=== PATIENT | female | born 1950 | race Caucasian/White ===

== ENCOUNTER 2021-01-16 00:28 | Inpatient (IN) ==
[2021-01-16 01:19] LABS: Alanine Aminotransferase 53 U/L (13-56); Albumin 1.5 G/DL (3.4-5.0); Alkaline Phosphatase 983 U/L (45-117); Aspartate Amino Transferase 180 U/L (0-37); Blood Urea Nitrogen 21 MG/DL (7-18); Calcium 7.7 MG/DL (8.5-10.1); Carbon Dioxide 22 MMOL/L (21-32); Estimated Glom Filtration Rate 81 ML/MIN; Glucose 114 MG/DL (74-106); Osmolality,Calculated 269.4 MOS/KG (273-304); Potassium 3.6 MMOL/L (3.5-5.1); Sodium 133 MMOL/L (136-145)
[2021-01-16 01:24] LABS: INR 1.4; PT Patient Result 15.6 SECS (10.5-12.0); Partial Thromboplastin Time 29.1 SECS (23.8-32.1)
[2021-01-16] MEDS ORDERED: SODIUM CHLORIDE 0.9% 1,500 ML IV STA (01:28)
[2021-01-16] MEDS ORDERED: PIPERACILLIN/TAZOBACTAM 3,375 MG in SODIUM CHLORIDE 0.9% 100 ML IV STA (01:30)
[2021-01-16 01:34] LABS: Basophils % 0.1 % (0.0-0.8); Hematocrit 34.3 VOL% (35.7-47.0); Hemoglobin 10.1 GM/DL (12.0-16.0); Immature Granulocytes Absolute 0.11 #; Lymphocytes # 0.4 10*3/uL (1.4-4.0); Lymphocytes % 3.8 % (21.3-54.2); Mean Corpuscular HGB Conc 29.4 GM/DL (32-36); Mean Platelet Volume 11.6 FL (9.6-12.0); Monocytes % 4.3 % (1.7-12.7); Neutrophils % 90.8 % (38.7-73.9); Platelet Count 243 T/CUMM (130-400); Red Blood Count 3.73 MC/CUMM (3.8-5.5); Red Cell Distribution Width 24.2 % (9.3-17.3); White Blood Count 11.4 T/CUMM (4-12)
[2021-01-16 01:53] LABS: Bacteria,Urine Occasional /HPF (Few); Bilirubin,Urine Moderate mg/dL (Negative); Blood, Urine Negative (Negative); Glucose,Urine (UA) Negative (Negative); Granular Casts,Urine 3 /LPF (0-1); Hyaline Casts,Urine 28 /LPF (0-3); Ketones,Urine Negative (Negative); Mucus,Urine Occasional /LPF (Occasional); Nitrite,Urine Negative (Negative); Protein,Urine 30 MG/DL; RBC,Urine 1 /HPF (0-4); Squamous Epithelial Cell,Urine Occasional /HPF (0-10); Urine Appearance CLEAR (Clear); Urine Color Amber (Yellow); Urine Specific Gravity 1.028 (1.001-1.035)
[2021-01-16 01:56] LABS: Lymphocytes 2 % (20-55); Segmented Neutrophils 94 % (50-85); Total Cells Counted 100
[2021-01-16 01:57] LABS: Hypochromasia 2+; Platelet Estimate Normal
[2021-01-16] MEDS ORDERED: GLUCAGON 1 MG VIAL IM PRN (03:31)
[2021-01-16] MEDS ORDERED: ACETAMINOPHEN 325 MG TABLET PO PRN (03:31)
[2021-01-16] MEDS ORDERED: DEXTROSE 50% 25 GM/50 ML VIAL IV PRN (03:31)
[2021-01-16] MEDS ORDERED: NICOTINE 21 MG/24 HR PATCH TRANSDERM PRN (03:31)
[2021-01-16] MEDS ORDERED: hydrALAZINE 20 MG/1 ML VIAL IV PRN (03:31)
[2021-01-16] MEDS ORDERED: ONDANSETRON 4 MG/2 ML VIAL IV PRN (03:31)
[2021-01-16] MEDS ORDERED: SODIUM CHLORIDE 0.9% 1,000 ML IV SCH (04:00)
[2021-01-16 06:08] LABS: Bilirubin,Direct 3.92 MG/DL (0.0-0.20); Bilirubin,Indirect 0.9 MG/DL (0.0-1.0); Bilirubin,Total 4.8 MG/DL (0.20-1.00)
[2021-01-16] MEDS: ALBUTEROL/IPRATROPIUM 3 ML NEB RESP TX SCH ×3 (07:12→20:04)
[2021-01-16] MEDS: PANTOPRAZOLE 40 MG VIAL IV SCH ×2 (09:53→20:48)
[2021-01-16] MEDS: PIPERACILLIN/TAZOBACTAM 3,375 MG in SODIUM CHLORIDE 0.9% 100 ML IV SCH ×2 (09:55→16:59)
[2021-01-16 10:22] LABS: Hematocrit 30.3 VOL% (35.7-47.0); Hemoglobin 8.9 GM/DL (12.0-16.0)
[2021-01-16] MEDS: PARoxetine 20 MG TABLET PO SCH (10:34)
[2021-01-16] MEDS: buPROPion XL 150 MG TABLET PO SCH (10:35)
[2021-01-16] MEDS: INSULIN REGULAR 100 UNIT/ML SUBCUT SCH ×3 (12:50→20:47)
[2021-01-16 13:53] LABS: AFP Tumor < 2.2 NG/ML (0-8); Hepatitis B Core IgM Quant 0.61 Index; Hepatitis B Surface Ag Quant < 0.10 Index; Hepatitis B Surface Ag Result Non-Reactive (NonReactive); Hepatitis C Virus Ab Quant 0.14 Index; Hepatitis C Virus Ab Result Non-Reactive (NonReactive)
[2021-01-17] MEDS: ALBUTEROL/IPRATROPIUM 3 ML NEB RESP TX SCH ×4 (01:05→19:09)
[2021-01-17] MEDS: PIPERACILLIN/TAZOBACTAM 3,375 MG in SODIUM CHLORIDE 0.9% 100 ML IV SCH ×3 (01:15→16:43)
[2021-01-17 02:50] LABS: Basophils % 0.1 % (0.0-0.8); Eosinophils % 0.1 % (0.00-10.9); Hematocrit 29.7 VOL% (35.7-47.0); Hemoglobin 8.9 GM/DL (12.0-16.0); Immature Granulocytes % 0.6 %; Immature Granulocytes Absolute 0.07 #; Lymphocytes # 0.7 10*3/uL (1.4-4.0); Mean Corpuscular Volume 90.5 FL (87-102); Mean Platelet Volume 10.9 FL (9.6-12.0); Monocytes % 6.5 % (1.7-12.7); Neutrophils % 86.7 % (38.7-73.9); Platelet Count 220 T/CUMM (130-400); Red Blood Count 3.28 MC/CUMM (3.8-5.5); White Blood Count 12.3 T/CUMM (4-12)
[2021-01-17 03:29] LABS: Hypochromasia 1+; Polychromasia Slight
[2021-01-17 03:30] LABS: Microcytosis 1+; Platelet Estimate Normal
[2021-01-17 03:48] LABS: Albumin 1.4 G/DL (3.4-5.0); Bilirubin,Total 4.9 MG/DL (0.20-1.00); Osmolality,Calculated 272.8 MOS/KG (273-304); Potassium 3.1 MMOL/L (3.5-5.1); Total Protein 5.6 G/DL (6.4-8.2)
[2021-01-17 04:01] LABS: Calcium 6.8 MG/DL (8.5-10.1)
[2021-01-17] MEDS: INSULIN REGULAR 100 UNIT/ML SUBCUT SCH ×4 (08:40→21:12)
[2021-01-17] MEDS: PARoxetine 20 MG TABLET PO SCH (08:42)
[2021-01-17] MEDS: PANTOPRAZOLE 40 MG VIAL IV SCH ×2 (08:42→21:13)
[2021-01-17] MEDS: buPROPion XL 150 MG TABLET PO SCH (08:42)
[2021-01-18] MEDS: ALBUTEROL/IPRATROPIUM 3 ML NEB RESP TX SCH ×4 (00:52→19:22)
[2021-01-18] MEDS: PIPERACILLIN/TAZOBACTAM 3,375 MG in SODIUM CHLORIDE 0.9% 100 ML IV SCH ×3 (01:42→17:36)
[2021-01-18 05:14] LABS: Eosinophils % 0.2 % (0.00-10.9); Hematocrit 27.8 VOL% (35.7-47.0); Hemoglobin 8.1 GM/DL (12.0-16.0); Immature Granulocytes % 0.6 %; Immature Granulocytes Absolute 0.06 #; Lymphocytes # 0.5 10*3/uL (1.4-4.0); Mean Corpuscular HGB Conc 29.1 GM/DL (32-36); Mean Corpuscular Volume 92.4 FL (87-102); Mean Platelet Volume 11.1 FL (9.6-12.0); Monocytes % 6.6 % (1.7-12.7); Neutrophils % 87.6 % (38.7-73.9); Platelet Count 159 T/CUMM (130-400); Red Blood Count 3.01 MC/CUMM (3.8-5.5); Red Cell Distribution Width 23.9 % (9.3-17.3); White Blood Count 9.5 T/CUMM (4-12)
[2021-01-18 05:50] LABS: Albumin 1.2 G/DL (3.4-5.0); Bilirubin,Total 4.5 MG/DL (0.20-1.00); Calcium 6.7 MG/DL (8.5-10.1); Osmolality,Calculated 272.7 MOS/KG (273-304); Potassium 3.2 MMOL/L (3.5-5.1); Total Protein 5.2 G/DL (6.4-8.2)
[2021-01-18] MEDS: INSULIN REGULAR 100 UNIT/ML SUBCUT SCH ×4 (07:30→21:19)
[2021-01-18] MEDS ORDERED: LIDOCAINE 2% 5 ML VIAL ONE (11:26)
[2021-01-18] MEDS ORDERED: propofoL 200 MG/20 ML VIAL IV ONE (11:26)
[2021-01-18] MEDS: PANTOPRAZOLE 40 MG VIAL IV SCH ×2 (12:40→21:19)
[2021-01-18] MEDS: PARoxetine 20 MG TABLET PO SCH (13:01)
[2021-01-18] MEDS: buPROPion XL 150 MG TABLET PO SCH (13:01)
[2021-01-18] MEDS: POTASSIUM CHLORIDE 20 MEQ TABLET PO PRN (17:36)
[2021-01-19] MEDS: POTASSIUM CHLORIDE 20 MEQ TABLET PO PRN ×4 (00:08→11:08)
[2021-01-19] MEDS: PIPERACILLIN/TAZOBACTAM 3,375 MG in SODIUM CHLORIDE 0.9% 100 ML IV SCH ×3 (00:11→18:08)
[2021-01-19] MEDS: ALBUTEROL/IPRATROPIUM 3 ML NEB RESP TX SCH ×4 (00:39→19:45)
[2021-01-19 05:42] LABS: Basophils % 0.1 % (0.0-0.8); Eosinophils % 0.1 % (0.00-10.9); Hematocrit 30.6 VOL% (35.7-47.0); Hemoglobin 8.9 GM/DL (12.0-16.0); Immature Granulocytes % 0.4 %; Immature Granulocytes Absolute 0.04 #; Lymphocytes # 0.5 10*3/uL (1.4-4.0); Lymphocytes % 5.5 % (21.3-54.2); Mean Corpuscular HGB Conc 29.1 GM/DL (32-36); Mean Corpuscular Volume 93.3 FL (87-102); Monocytes % 6.2 % (1.7-12.7); Neutrophils % 87.7 % (38.7-73.9); Platelet Count 178 T/CUMM (130-400); Red Blood Count 3.28 MC/CUMM (3.8-5.5); White Blood Count 9.9 T/CUMM (4-12)
[2021-01-19 06:01] LABS: Albumin 1.2 G/DL (3.4-5.0); Bilirubin,Total 5.5 MG/DL (0.20-1.00); Calcium 6.8 MG/DL (8.5-10.1); Osmolality,Calculated 270.8 MOS/KG (273-304); Total Protein 5.5 G/DL (6.4-8.2)
[2021-01-19] MEDS: INSULIN REGULAR 100 UNIT/ML SUBCUT SCH ×4 (08:35→23:09)
[2021-01-19] MEDS: PARoxetine 20 MG TABLET PO SCH (11:08)
[2021-01-19] MEDS: buPROPion XL 150 MG TABLET PO SCH (11:08)
[2021-01-19] MEDS: PANTOPRAZOLE 40 MG VIAL IV SCH ×2 (11:09→20:41)
[2021-01-19] MEDS ORDERED: DIAZEPAM 5 MG TABLET PO ONE (13:07)
[2021-01-19 15:29] LABS: Neutrophils,Peritoneal Fluid 79 %
[2021-01-19 15:30] LABS: RBC,Peritoneal Fluid 62996 T/CUMM
[2021-01-20] MEDS: ALBUTEROL/IPRATROPIUM 3 ML NEB RESP TX SCH ×4 (00:10→19:21)
[2021-01-20] MEDS: PIPERACILLIN/TAZOBACTAM 3,375 MG in SODIUM CHLORIDE 0.9% 100 ML IV SCH ×3 (00:44→17:34)
[2021-01-20 05:37] LABS: Albumin 1.3 G/DL (3.4-5.0); Bilirubin,Total 6.2 MG/DL (0.20-1.00); Calcium 6.8 MG/DL (8.5-10.1); Potassium 3.8 MMOL/L (3.5-5.1); Total Protein 5.7 G/DL (6.4-8.2)
[2021-01-20 05:51] LABS: Basophils % 0.1 % (0.0-0.8); Eosinophils % 0.3 % (0.00-10.9); Hematocrit 30.2 VOL% (35.7-47.0); Immature Granulocytes % 0.4 %; Immature Granulocytes Absolute 0.05 #; Lymphocytes # 0.7 10*3/uL (1.4-4.0); Mean Corpuscular HGB Conc 29.5 GM/DL (32-36); Mean Corpuscular Volume 94.7 FL (87-102); Neutrophils % 86.2 % (38.7-73.9); Platelet Count 190 T/CUMM (130-400); Red Blood Count 3.19 MC/CUMM (3.8-5.5); Red Cell Distribution Width 24.1 % (9.3-17.3); White Blood Count 11.5 T/CUMM (4-12)
[2021-01-20 05:55] LABS: Hemoglobin 8.9 GM/DL (12.0-16.0)
[2021-01-20 06:08] LABS: Hypochromasia 1+; Microcytosis 1+; Platelet Estimate Adequate
[2021-01-20] MEDS: INSULIN REGULAR 100 UNIT/ML SUBCUT SCH ×4 (08:14→20:43)
[2021-01-20] MEDS: PARoxetine 20 MG TABLET PO SCH (09:59)
[2021-01-20] MEDS: buPROPion XL 150 MG TABLET PO SCH (09:59)
[2021-01-20] MEDS: PANTOPRAZOLE 40 MG VIAL IV SCH ×2 (10:00→20:17)
[2021-01-21] MEDS: PIPERACILLIN/TAZOBACTAM 3,375 MG in SODIUM CHLORIDE 0.9% 100 ML IV SCH ×3 (00:14→17:35)
[2021-01-21] MEDS: ALBUTEROL/IPRATROPIUM 3 ML NEB RESP TX SCH ×4 (01:00→20:50)
[2021-01-21] MEDS: PANTOPRAZOLE 40 MG VIAL IV SCH ×2 (10:38→22:11)
[2021-01-21] MEDS: PARoxetine 20 MG TABLET PO SCH (10:38)
[2021-01-21] MEDS: buPROPion XL 150 MG TABLET PO SCH (10:38)
[2021-01-21] MEDS: INSULIN REGULAR 100 UNIT/ML SUBCUT SCH ×4 (10:39→22:14)
[2021-01-21] MEDS: METOPROLOL TARTRATE 25 MG TABLET PO SCH ×2 (14:27→22:11)
[2021-01-21] MEDS ORDERED: TUBERCULIN SKIN TEST 0.1 ML SYRINGE INTRADERM ONE (21:00)
[2021-01-22] MEDS: PIPERACILLIN/TAZOBACTAM 3,375 MG in SODIUM CHLORIDE 0.9% 100 ML IV SCH ×2 (01:20→10:06)
[2021-01-22] MEDS: METOPROLOL TARTRATE 25 MG TABLET PO SCH ×3 (03:17→17:24)
[2021-01-22] MEDS: ALBUTEROL/IPRATROPIUM 3 ML NEB RESP TX SCH ×3 (04:00→13:47)
[2021-01-22 06:12] LABS: Basophils % 0.1 % (0.0-0.8); Eosinophils % 0.3 % (0.00-10.9); Hematocrit 32.8 VOL% (35.7-47.0); Hemoglobin 9.6 GM/DL (12.0-16.0); Immature Granulocytes % 0.7 %; Immature Granulocytes Absolute 0.07 #; Lymphocytes # 0.5 10*3/uL (1.4-4.0); Lymphocytes % 4.9 % (21.3-54.2); Mean Corpuscular HGB Conc 29.3 GM/DL (32-36); Mean Corpuscular Volume 95.6 FL (87-102); Mean Platelet Volume 11.3 FL (9.6-12.0); Monocytes % 5.4 % (1.7-12.7); Neutrophils % 88.6 % (38.7-73.9); Platelet Count 181 T/CUMM (130-400); Red Blood Count 3.43 MC/CUMM (3.8-5.5); Red Cell Distribution Width 23.2 % (9.3-17.3); White Blood Count 10.4 T/CUMM (4-12)
[2021-01-22 06:30] LABS: Albumin 1.1 G/DL (3.4-5.0); Bilirubin,Total 4.5 MG/DL (0.20-1.00); Calcium 6.7 MG/DL (8.5-10.1); Osmolality,Calculated 270.8 MOS/KG (273-304); Potassium 3.8 MMOL/L (3.5-5.1); Total Protein 5.1 G/DL (6.4-8.2)
[2021-01-22 06:42] LABS: Hypochromasia 1+; Lymphocytes 2 % (20-55); Microcytosis 1+; Platelet Estimate Adequate; Segmented Neutrophils 95 % (50-85); Total Cells Counted 100
[2021-01-22] MEDS ORDERED: MAGNESIUM SULF RIDER 4 GM/100 ML PREMIX IV PRN (07:55)
[2021-01-22] MEDS ORDERED: MAGNESIUM SULF RIDER 2 GM/50 ML PREMIX IV PRN (07:55)
[2021-01-22] MEDS: PANTOPRAZOLE 40 MG VIAL IV SCH (10:08)
[2021-01-22] MEDS: buPROPion XL 150 MG TABLET PO SCH (10:09)
[2021-01-22] MEDS: PARoxetine 20 MG TABLET PO SCH (10:09)
[2021-01-22] MEDS: INSULIN REGULAR 100 UNIT/ML SUBCUT SCH ×3 (10:09→17:44)
[2021-01-22 17:48] VITALS: BP 95/56
== END 2021-01-22 17:51 | disposition swing bed (61) | DRG 436 ==
LOC: EDBD → EDUNIT# → N.ED 00:28 → N.EDINP 03:32 → SUATTDRO 03:32 → N.5E 04:15
PROVIDERS: ADMIT Internal Medicine; ATTEND Emergency Medicine